=== PATIENT | female | born 1955 | race American Indian/Alaskan Native ===

== ENCOUNTER 2019-04-09 11:19 | Emergency (ER) | payer MEDICARE ==
--- NOTE | 2019-04-09 13:54 | Emergency Department Report ---
Blank Doc - Documentation Documentation: 64-year-old female that presents with neck, headache, and lower back pain s/p trip and fall. Denies any LOC. This initial assessment/diagnostic orders/clinical plan/treatment(s) is/are subject to change based on patient's health status, clinical progression and re- assessment by fellow clinical providers in the ED. Further treatment and workup at subsequent clinical providers discretion. Patient/guardians urged not to elope from the ED as their condition may be serious if not clinically assessed and managed. Initial orders include: 1- Patient sent to [facility] for further evaluation and treatment 2- ct/xrays 3- cervical collar
--- NOTE | 2019-04-09 14:25 | XRay Report ---
LUMBAR SPINE 2 VIEWS INDICATION / CLINICAL INFORMATION: pain s/p fall. COMPARISON: None available. FINDINGS: VERTEBRAE: No acute fracture. No significant malalignment. DISC SPACES / FACET JOINTS:No significant abnormality. PARASPINAL SOFT TISSUES:No significant abnormality. ADDITIONAL FINDINGS: None. Signer Name: Mary Vaz MD Signed: 04/09/2019 2:21 PM Workstation Name: [id number]
--- NOTE | 2019-04-09 15:20 | Cat Scan Report ---
CT HEAD WITHOUT CONTRAST INDICATION / CLINICAL INFORMATION: pain s/p fall. TECHNIQUE: Axial imaging performed from the skull apex through the skull base without the use of cont rast. Sagittal and coronal reformatted images. All CT scans at this location are performed using CT dose reduction for ALARA by means of automated exposure control. COMPARISON: None available. FINDINGS: CEREBRAL PARENCHYMA: No significant abnormality. No acute territorial infarct. HEMORRHAGE: None. EXTRA-AXIAL SPACES: Normal in size and morphology for the patient's age. VENTRICULAR SYSTEM: Normal in size and morphology for the patient's age. MIDLINE SHIFT OR HERNIATION: None. CEREBELLUM / BRAINSTEM: No significant abnormality. CALVARIUM: No significant abnormality. ORBITS: Normal as visualized. PARANASAL SINUSES / MASTOID AIR CELLS: Normal as visualized. SOFT TISSUES of HEAD: No significant abnormality. ADDITIONAL FINDINGS: None. IMPRESSION: No acute intracranial abnormality. Signer Name: Nikolas Putnam Jr, MD Signed: 04/09/2019 3:16 PM Workstation Name: [id number]
--- NOTE | 2019-04-09 15:36 | Cat Scan Report ---
CT CERVICAL SPINE SPINE WITHOUT CONTRAST INDICATION: pain s/p fall. TECHNIQUE: Axial imaging performed through the cervical spine without the use of contrast. Sagittal and coronal reconstructed images were also reviewed. All CT scans at this location are performed us ing CT dose reduction for ALARA by means of automated exposure control. COMPARISON: None FINDINGS: Alignment: Spinal alignment is normal. Bones: There is no acute osseous abnormality. Mild multilevel discogenic DJD is present. Soft tissues: No acute or significant incidental soft tissue abnormality. Small right cervical rib is noted at C7. IMPRESSION: No acute abnormality. Signer Name: Nikolas Putnam Jr, MD Signed: 04/09/2019 3:32 PM Workstation Name: [id number]
--- NOTE | 2019-04-09 20:43 | Emergency Department Report ---
ED Fall HPI - General Chief Complaint: Fall Stated Complaint: FALL INJURY/PAIN Time Seen by Provider: 04/09/19 13:52 Source: patient Mode of arrival: Ambulatory - History of Present Illness Initial Comments: Patient is a 64-year-old -Portuguese female with a history of hypertension who presents to the ED record and the acute onset persistent neck pain and knee and low back pain after she slipped and fell down on the floor over 12 hours ago and landed on her back hitting her head on the concrete floor. The patient states that initially she had mild headache with nausea but that these symptoms resolved after about 1 hour. Patient states that with time her back pain and neck pain started getting worse and she decided come to the ED for evaluation. Patient denies loss of consciousness, syncope, dizziness, chest pain, shortness of breath, change in vision, palpitations, seizures, nausea and vomiting, numbness and tingling or weakness of upper and lower extremities bilaterally, urinary or bowel incontinence and saddle paresthesia. MD Complaint: fall, other (neck pain, back pain, head injury) -: Sudden, hour(s) (12) Fall From: standing, other (slipped and fell down on wet floor) When Fall Occurred: other (over 12 hours) Fall Witnessed: yes, by family Place Fall Occurred: home Loss of Consciousness: none Prolonged Down Time?: no Symptoms Prior to Fall: none Location: head, neck, back Severity: mild Severity scale (0 -10): 1 Quality: dull, aching Context: tripped/slipped (wet floor) Associated Symptoms: denies, neck pain. denies: headache, numbness, weakness, chest paint, shortness of breath, abdominal pain, hematuria, unable to walk, lightheaded, vertigo, confusion - Related Data Previous Rx's Medication Instructions Recorded Last Taken Type Metaxalone [Skelaxin] 800 mg PO Q8H PRN #15 tablet 04/09/19 Unknown Rx Naproxen 500 mg PO Q12H PRN #24 tablet 04/09/19 Unknown Rx Allergies Allergy/AdvReac Type Severity Reaction Status Date / Time No Known Allergies Allergy Unverified 04/09/19 11:31 ED Review of Systems ROS: Stated complaint: FALL INJURY/PAIN Other details as noted in HPI Constitutional: denies: chills, fever Eyes: denies: eye pain, eye discharge, vision change ENT: denies: ear pain, throat pain Respiratory: denies: cough, shortness of breath, wheezing Cardiovascular: denies: chest pain, palpitations Endocrine: no symptoms reported Gastrointestinal: denies: abdominal pain, nausea, diarrhea Genitourinary: denies: urgency, dysuria, discharge Musculoskeletal: back pain (lower), arthralgia (neck pain). denies: joint swelling Skin: denies: rash, lesions Neurological: headache. denies: weakness, paresthesias Psychiatric: denies: anxiety, depression Hematological/Lymphatic: denies: easy bleeding, easy bruising ED Past Medical Hx - Past Medical History Previous Medical History?: Yes Hx Hypertension: Yes Additional medical history: glaucoma - Social History Smoking Status: Never Smoker Substance Use Type: None - Medications Home Medications: Home Medications Medication Instructions Recorded Confirmed Last Taken Type Metaxalone [Skelaxin] 800 mg PO Q8H PRN #15 tablet 04/09/19 Unknown Rx Naproxen 500 mg PO Q12H PRN #24 tablet 04/09/19 Unknown Rx ED Physical Exam - General Limitations: No Limitations General appearance: alert, in no apparent distress - Head Head exam: Present: atraumatic, normocephalic, normal inspection - Eye Eye exam: Present: normal appearance, PERRL, EOMI Pupils: Present: normal accommodation - ENT ENT exam: Present: normal exam, normal orophraynx, mucous membranes moist, TM's normal bilaterally, normal external ear exam - Neck Neck exam: Present: normal inspection, full ROM. Absent: tenderness, meningismus, lymphadenopathy, thyromegaly - Respiratory Respiratory exam: Present: normal lung sounds bilaterally. Absent: respiratory distress, wheezes, rales, chest wall tenderness, accessory muscle use, decreased breath sounds - Cardiovascular Cardiovascular Exam: Present: regular rate, normal rhythm, normal heart sounds. Absent: systolic murmur, diastolic murmur, rubs, gallop - GI/Abdominal GI/Abdominal exam: Present: soft, normal bowel sounds. Absent: tenderness, guarding, hyperactive bowel sounds, hypoactive bowel sounds - Extremities Exam Extremities exam: Present: normal inspection, full ROM, normal capillary refill - Back Exam Back exam: Present: normal inspection, full ROM, tenderness (palpable lumbosacral paraspinal musculoskeletal tenderness), muscle spasm, paraspinal tenderness - Neurological Exam Neurological exam: Present: alert, oriented X3, CN II-XII intact, normal gait, reflexes normal - Psychiatric Psychiatric exam: Present: normal affect, normal mood - Skin Skin exam: Present: warm, dry, intact, normal color. Absent: rash ED Course Vital Signs 04/09/19 13:53 Temperature 98.1 F Pulse Rate 69 Respiratory 18 Rate Blood Pressure 155/90 O2 Sat by Pulse 100 Oximetry ED Medical Decision Making - Radiology Data Radiology results: report reviewed, image reviewed Findings [address] [address] XRay Report Signed Patient: DANIEL OBRIEN MR#: [id number] : 1955 Acct:[id number] Age/Sex: 64 / F ADM Date: 04/09/19 Loc: ED Attending Dr: Ordering Physician: SHAHZAD MAC NP Date of Service: 04/09/19 Procedure(s): XR spine lumbosacral 2-3V Accession Number(s): [id number] cc: SHAHZAD MAC NP Fluoro Time In Minutes: LUMBAR SPINE 2 VIEWS INDICATION / CLINICAL INFORMATION: pain s/p fall. COMPARISON: None available. FINDINGS: VERTEBRAE: No acute fracture. No significant malalignment. DISC SPACES / FACET JOINTS:No significant abnormality. PARASPINAL SOFT TISSUES:No significant abnormality. ADDITIONAL FINDINGS: None. Signer Name: Mary Vaz MD Signed: 04/09/2019 2:21 PM Workstation Name: [id number] Transcribed By: TENZIN Dictated By: Mil Vaz MD Electronically Authenticated By: Mil Vaz MD Signed Date/Time: 04/09/19 1421 DD/ 1418 ------ Findings [address] [place] [address] Cat Scan Report Signed Patient: DANIEL OBRIEN MR#: [id number] : 1955 Acct:[id number] Age/Sex: 64 / F ADM Date: 04/09/19 Loc: ED Attending Dr: Ordering Physician: SHAHZAD MAC NP Date of Service: 04/09/19 Procedure(s): CT head/brain wo con Accession Number(s): [id number] cc: SHAHZAD MAC NP CT HEAD WITHOUT CONTRAST INDICATION / CLINICAL INFORMATION: pain s/p fall. TECHNIQUE: Axial imaging performed from the skull apex through the skull base without the use of contrast. Sagittal and coronal reformatted images. All CT scans at this location are performed using CT dose reduction for ALARA by means of automated exposure control. COMPARISON: None available. FINDINGS: CEREBRAL PARENCHYMA: No significant abnormality. No acute territorial infarct. HEMORRHAGE: None. EXTRA-AXIAL SPACES: Normal in size and morphology for the patient's age. VENTRICULAR SYSTEM: Normal in size and morphology for the patient's age. MIDLINE SHIFT OR HERNIATION: None. CEREBELLUM / BRAINSTEM: No significant abnormality. CALVARIUM: No significant abnormality. ORBITS: Normal as visualized. PARANASAL SINUSES / MASTOID AIR CELLS: Normal as visualized. SOFT TISSUES of HEAD: No significant abnormality. ADDITIONAL FINDINGS: None. IMPRESSION: No acute intracranial abnormality. Signer Name: Nikolas Putnam Jr, MD Signed: 04/09/2019 3:16 PM Workstation Name: [id number] Transcribed By: TTR Dictated By: NIKOLAS PUTNAM JR, MD Electronically Authenticated By: NIKOLAS PUTNAM JR, MD Signed Date/Time: 04/09/19 1516 DD/ 1515 Findings [facility] [address] [place] [address] Cat Scan Report Signed Patient: DANIEL OBRIEN MR#: [id number] : 1955 Acct:[id number] Age/Sex: 64 / F ADM Date: 04/09/19 Loc: ED Attending Dr: Ordering Physician: SHAHZAD MAC NP Date of Service: 04/09/19 Procedure(s): CT cervical spine wo con Accession Number(s): [id number] cc: SHAHZAD MAC NP CT CERVICAL SPINE SPINE WITHOUT CONTRAST INDICATION: pain s/p fall. TECHNIQUE: Axial imaging performed through the cervical spine without the use of contrast. Sagittal and coronal reconstructed images were also reviewed. All CT scans at this location are performed using CT dose reduction for ALARA by means of automated exposure control. COMPARISON: None FINDINGS: Alignment: Spinal alignment is normal. Bones: There is no acute osseous abnormality. Mild multilevel discogenic DJD is present. Soft tissues: No acute or significant incidental soft tissue abnormality. Small right cervical rib is noted at C7. IMPRESSION: No acute abnormality. Signer Name: Nikolas Putnam Jr, MD Signed: 04/09/2019 3:32 PM Workstation Name: [id number] Transcribed By: TTR Dictated By: NIKOLAS UPTNAM JR, MD Electronically Authenticated By: NIKOLAS PUTNAM JR, MD Signed Date/Time: 04/09/19 1532 DD/ 1530 TD/TT: - Medical Decision Making This is a 64-year-old female who presented to the ED with neck pain and low back pain after she slipped and fell down on her back hitting her head on the floor with no loss of consciousness. In the ED, patient is alert and oriented 3 and is not in distress. Patient declined pain medications in the ED. Head CT scan without contrast shows no acute intracranial abnormalities or hemorrhage. C- spine CT scan without contrast shows no acute fractures or subluxations of the cervical spine. The L-spine x-ray shows no acute fractures or subluxations. Patient will discharged home on pain medications and muscle relaxants to be taken as needed, and was advised to follow-up with her primary care physician in 5-7 days for reevaluation or return to the ED immediately if symptoms get worse. - Differential Diagnosis Cervical sprain; back muscle spasm; head injury Critical care attestation.: If time is entered above; I have spent that time in minutes in the direct care of this critically ill patient, excluding procedure time. ED Disposition Clinical Impression: Spasm of muscle of lower back, Cervical paraspinal muscle spasm Contusion of scalp Qualifiers: Encounter type: initial encounter Qualified Code(s): S00.03XA - Contusion of scalp, initial encounter Disposition: TO HOME OR SELFCARE Is pt being admited?: No Does the pt Need Aspirin: No Condition: Stable Instructions: Muscle Spasm (ED), Cervical Sprain (ED), Back Pain (ED), Scalp Contusion in Adults (ED) Additional Instructions: Take medications with food, drink plenty of fluids and follow-up with your primary care physician in 5-7 days for reevaluation. Return to the ED immediately if symptoms get worse. Prescriptions: Naproxen 500 mg PO Q12H PRN #24 tablet PRN Reason: Pain , Severe (7-10) Metaxalone [Skelaxin] 800 mg PO Q8H PRN #15 tablet PRN Reason: Muscle Spasm Referrals: ORLANDO HENNING MD [Primary Care Provider] - 3-5 Days Time of Disposition: 20:52 Print Language: PORTUGUESE
[2019-04-09 21:03] VITALS: BP 127/84
== END 2019-04-09 21:00 | disposition home or self-care (01) ==
LOC: ED 11:19
DX: S00.03XA Contusion of scalp, initial encounter (principal); M62.830 Muscle spasm of back; M62.838 Other muscle spasm; I10 Essential (primary) hypertension; W01.0XXA Fall on same level from slipping, tripping and stumbling without subsequent striking against object, initial encounter; Y93.89 Activity, other specified; Y92.89 Other specified places as the place of occurrence of the external cause; Y99.8 Other external cause status
CPT/HCPCS: 70450; 72100; 72125